=== PATIENT | male | born 1965 ===

== ENCOUNTER 2024-08-24 14:45 | Outpatient (AMB) | payer BC, SELFPAY ==
--- NOTE | 2024-08-24 14:47 | A.OFFVIS_ITS ---
Vital Signs 08/24/24 14:53 Height 5 ft 8 in Weight 139 lb 4 oz BMI 21.2 BP 128/85 Blood Pressure Location Rt brachial Position Sitting Pulse 77 Pulse Source Pulse Oximeter Pulse Oximetry (%) 99 Oxygen Delivery Method Room Air Intake Visit Reasons: Lt shoulder/low back pain Intake Note: Pain today 08/12 Turbinated Bone Grinder Required: No Accompanied by: Self / Same As Patient Allergies No Known Allergies Allergy (Verified 08/24/24 14:52) HPI Comments Details: The patient is a 59-year-old male presenting with chronic low back pain, characterized by right-sided sciatica. Symptoms have persisted for approximately four months without an inciting injury. He has a history of successful spinal fusion due to spondylolisthesis at L5-S1 performed 18 years prior. Current back pain is exacerbated by prolonged standing, walking, and driving, reaching a peak intensity of 7-8/10. The pain radiates along the right leg, occasionally affecting the heel and big toe, and is described as dull, sore, and heavy with bouts of tingling. Despite conservative measures such as physical therapy and alternative medicine approaches such as acupressure, massage, Tylenol, Percocet, NSAIDs (Aleve and meloxicam), Medrol Jeff, cyclobenzaprine, pain relief has been inadequate. Additionally, he presents with left shoulder pain, identified as frozen shoulder, though this is not the patient's primary concern currently. Imaging has identified a disc herniation at L4-L5 with moderate to severe right foraminal narrowing, potentially exacerbating sciatica symptoms. The patient has also been diagnosed with early-stage prostate cancer, in addition to pre- existing IBS and diverticulitis, which are currently under management. His lifestyle includes a history of smoking, abstained for 26 years, and moderate alcohol consumption. - Chronic low back pain persisting for four months, radiating down the right leg to the heel and big toe. - Described as dull, sore, aching, heavy, tingling, tiring, hurting and tight squeezing. - Exacerbated by prolonged standing, excessive walking, and driving. - Pain level at 7-8/10, especially in the morning and evening, can reach 8+ after activity. - Occasional relief from rest; does not worsen with urinary or bowel function. - Functional impact on ability to walk extensive distances; requires poles when hiking. - Affect: Chronic pain causing frustration; manageable focus on achieving functional goals. - Analgesia: Current pain rated 7/10, with exacerbations. Patient has used muscle relaxants and steroids with limited effect. - Adverse Effects: No significant adverse effects reported from medications tri ed. - Activities of Daily Living: Impacted; limitations in walking and driving due to pain. - Aberrant Drug Related Behaviors: No reported misuse of medications. [facility] Medical History (Updated 08/24/24 @ 16:08 by JOE Green) Osteopenia IBS (irritable bowel syndrome) Hyperlipidemia Diverticulitis Hx of colonic polyp Anxiety Left shoulder pain Right sided sciatica Surgical History (Updated 08/24/24 @ 16:07 by JOE Green) H/O lumbosacral spine surgery (~2010) Social History Alcohol intake: current Alcohol intake frequency: holidays/special occasions only Patient Tobacco Use Status: Never used Tobacco Review of Systems Const Details: - Musculoskeletal: Reports chronic low back pain, left shoulder stiffness, right leg sciatica. - Neurological: Denies urinary or bowel incontinence with pain, denies saddle an esthesia or foot drop. - Gastrointestinal: Reports history of IBS and diverticulitis. - Genitourinary: Recent diagnosis of early-stage prostate cancer; otherwise unremarkable. - Social: Stopped smoking 26 years ago; consumes alcohol moderately and uses marijuana on occasion. All systems reviewed & are unremarkable except as noted in HPI and below Physical Exam Vital Signs: Last Vital Signs Pulse 77 08/24/24 14:53 BP 128/85 08/24/24 14:53 Pulse Ox 99 08/24/24 14:53 Oxygen Delivery Method Room Air 08/24/24 14:53 BMI result Body Mass Index 21.2 General: Appears afebrile. Alert and oriented. Mood and affect appropriate. Follows and participates in conversation appropriately. Respiratory effort is unlabored. No cough. Able to transition from sit to stand unassisted. Ambulates with bilaterally normal heel strike and toe off, increased pain on the right with heel and toe standing. General: Yes no CVA tenderness Back/Spine/Pelvis Other: Limited lumbar ROM due to pain. Lumbar flexion and bending forward reproduces moderate pain, extension reproduces mild pain. Demonstrates 5/5 strength of quadriceps bilaterally as well as flexion/dorsiflexion of bilateral feet against resistance. 2+ pedal pulses bilaterally. Straight leg rise with dorsiflexion positive on the right. +2 patellar and achilles reflexes bilaterally. Facet loading test positive bilaterally. Nallely sign, Edvin?s and Stinchfield tests are positive on the right. No groin pain with I/E hip rotations. Valsalva maneuver is positive. Back: no CVA tenderness Cervical Spine: cervical ROM normal, cervical muscular tenderness and No Cervical spine tenderness Thoracic/Lumbar Spine: thoracic and lumbar spine normal to inspection, Thoracic/lumbar spine scar(s), Lasegue's sign positive (L4-L5 distribution) on the right and localized, pain with thoraco-lumbar ROM, paraspinal muscle tenderness, thoraco-lumbar ROM limited, No thoracic spinal tenderness and lumbar spinal tenderness at L3, at L4 and at L5 Pelvis: buttock tenderness on the right and no sciatic notch tenderness Sacroiliac joints: on the right tender to palpation and on the left nontender Extrem General: Yes capillary refill normal, Yes no clubbing, cyanosis or edema and Yes no calf tenderness Left upper extremity: shoulder/upper arm (Limited ROM, difficulty with overhead/back pocket reaches due to pain) Details: inspection abnormal, tenderness Location: of the A-C joint, over the biceps tendon and over the subacromial bursa and crepitus; no swelling, no ecchymosis, no deformity and no unsual warmth Results Reviewed Results Reviewed: MR LUMBAR SPINE WITHOUT AND WITH CONTRAST 08/04/24 at [facility] INDICATION: Low back pain, prior lumbar fusion, right-sided leg pain TECHNIQUE: Multiplanar multisequence imaging of the lumbar spine was obtained, without and with administration of 14 mL of Dotarem into the right antecubital vein. COMPARISON: Plain radiographs from November 09, 2023 FINDINGS: Vertebral bodies demonstrate normal height. There is susceptibility artifact related to L5-S1 transpedicular fusion hardware. Conus demonstrates normal contour and signal and terminates at L1 level. T12-L3: No significant abnormalities are seen. L3-L4 level shows a small left-sided foraminal disc bulge and mild facet arthrosis. The canal and recesses are patent. L4-L5 level shows right paracentral disc herniation, encroaching on the right traversing L5 nerve root along the subarticular zone, measuring 10 mm in diameter. Mild to moderate narrowing of the right lateral recess is seen. The canal and left lateral recesses are patent. There is severe right and moderate left foraminal stenosis, due to bulging disc and facet arthrosis L5-S1 level shows postsurgical changes related to transpedicular fusion. The canal and recesses are patent. There is an interbody spacer. Mild to moderate right-sided osseous foraminal narrowing is seen. The left foramen is patent. No pathologic enhancement is seen along the cauda equina following intravenous gadolinium administration. Visualized upper SI joints are preserved. Minor scoliosis seen. IMPRESSION: 1. Right paracentral disc herniation at L4-L5 level, encroaching on the right traversing L5 nerve root along the subarticular zone. Moderate to severe right- sided foraminal narrowing is also present this level. 2. Postsurgical changes at L5-S1 level related to transpedicular fusion. MR SHOULDER WITHOUT CONTRAST LEFT 08/04/24 INDICATION: Pain. No prior surgery. Symptoms for 2 to 3 months. COMPARISON: None. TECHNIQUE: Left shoulder MRI was performed without contrast and 7 diagnostic sequences were obtained. FINDINGS: The acromioclavicular joint is congruent. Undersurface of the acromion is flat. The coracoclavicular and coracoacromial ligaments are intact. The subacromial/subdeltoid bursa contains no fluid. The rotator cuff muscle volume is preserved. No muscular edema. The supraspinatus and infraspinatus tendons demonstrates supraspinatus tendon footprint bursal sided fraying with intermediate T2 fat sat signal (sagittal T2 fat sat image 6; coronal T2 fat sat images 11 and 12). No full-thickness or retracted tear. The teres minor tendon is intact. The subscapularis tendon is intact. The long head biceps tendon is intact. The glenohumeral joint is congruent. No joint effusion. No synovitis. Glenoid cartilage is preserved. No labral detachment. Humeral head cartilage is preserved. Bone marrow signal is normal. No soft tissue collection. IMPRESSION: 1. Supraspinatus footprint tendinosis with bursal sided fraying. No high-grade or retracted cuff tear. Assessment & Plan Assessment & Plan (1) Lumbar disc herniation with radiculopathy: Code(s): M51.16 - Intervertebral disc disorders with radiculopathy, lumbar region Category: Medical (2) Right sided sciatica: Code(s): M54.31 - Sciatica, right side Category: Medical (3) Left shoulder pain: Code(s): M25.512 - Pain in left shoulder Category: Medical (4) Lumbar spondylosis: Code(s): M47.816 - Spondylosis without myelopathy or radiculopathy, lumbar region Category: Medical (5) H/O lumbosacral spine surgery: Onset Date: ~2010 Code(s): Z98.890 - Other specified postprocedural states Category: Surgical (6) Left supraspinatus tendinitis: Code(s): M75.92 - Shoulder lesion, unspecified, left shoulder Category: Medical Plan Schedule Right L4-L5 TFESI with local and fluoroscopy targeting the L4-L5 disc herniation to address the chronic low back pain and right-sided sciatica. Expectations, risks and benefits were reviewed. Patient is aware he will be contacted to schedule this procedure. Subsequently, we will schedule Left intra-articular shoulder steroid injection with local and fluoroscopy to address left shoulder pain. Coordination with Orthopedic care will continue for the left shoulder condition. Management plans for early-stage prostate cancer are in place, with routine follow-up for these issues with Urology. All questions and concerns have been answered and patient agreed with the plan. Follow up after injections and sooner as needed. Patient was informed and verbally consented to the use of an ambient scribe for clinic note documentation during this visit. Coding Level of Care Code New Pt Level 4 (50213) Diagnoses Lumbar disc herniation with radiculopathy M51.16 Right sided sciatica M54.31 Left shoulder pain M25.512 Lumbar spondylosis M47.816 H/O lumbosacral spine surgery Z98.890 Left supraspinatus tendinitis M75.92
--- OUTSIDE RECORDS SUMMARY | 2024-08-24 14:48 | XMS_ITS ---
Author Name [facility] Organization Unknown History of Medication Use Medication Directions Dispensed Refills Start Date End Date Stat ciprofloxacin HCl (CIPRO) 500 mg tablet Take 1 tablet (500 mg total) by mouth 2 (two) times daily. 08/13/2024 active phenazopyridine (PYRIDIUM) 200 mg tablet Take 1 tablet (200 mg total) by mouth 3 (three) times daily with meals for 3 days. 08/13/2024 active citalopram (CELEXA) 20 mg tablet Take 1.5 tablets (30 mg total) by mouth daily. 06/18/2024 active ALPRAZolam (XANAX) 0.5 mg tablet active Problems Problem Status Onset Date Problem Type Date of Resolution Source Acute prostatitis active EncounterDiagnosisAct [facility] Urinary tract infection symptoms active EncounterDiagnosisAct [facility] Encounters Encounter Type Encounter Reason Primary Diagnosis Location Date Ambulatory Other symptoms involving urinary system(788.99) Other symptoms involving urinary system(788.99) [facility] 08/13/2024 Ambulatory Urinary tract infection, site not specified Urinary tract infection, site not specified [facility] 07/12/2024 Care Team Organization Name Specialty Phone Email Start Date End Da te [facility] 07/12/2024
[2024-08-24 14:53] VITALS: BP 128/85; PULSE 77; O2SAT 99; BMI 21.2
== END 2024-08-24 15:37 | disposition home or self-care (01) ==
PROVIDERS: PCP Internal Medicine; Referring Provider Physician Assistant Medical; Visit Provider Nurse Practitioner Family
DX: M51.16 Intervertebral disc disorders with radiculopathy, lumbar region (principal); M25.512 Pain in left shoulder; M47.816 Spondylosis without myelopathy or radiculopathy, lumbar region; Z98.890 Other specified postprocedural states; M75.92 Shoulder lesion, unspecified, left shoulder
CPT/HCPCS: 99204

== ENCOUNTER → 2024-08-24 14:45 | Outpatient (BNVA) | payer BC, SELFPAY | PROVIDERS: PCP Internal Medicine; Referring Provider Physician Assistant Medical; Visit Provider Nurse Practitioner Family ==